=== PATIENT | female | born 1990 | race Caucasian/White ===

== ENCOUNTER 2025-08-20 21:35 | Emergency (ER) | payer BC, SELFPAY ==
--- OUTSIDE RECORDS SUMMARY | 2025-08-20 12:35 | XMS_ITS | Encounter Summary ---
Author Organization [place] Address [address] [place] [id number] Care Team Providers Care Medical Records Technician Name Role Phone Clinic, [facility] Primary Care Provider + Reason for Referral * Consultation (Urgent: 3-5 Days) - Pending Review Specialty Diagnoses / Procedures Referred By Contac t Referred To Contact Urology Diagnoses Nephrolithiasis Yokasta Alexander MD [address] [place] [id number] Phone: tel: fax: Referral ID Status Reason Start Date Expiration Date V isits Requested Visits Authorized [id number] Pending Review 08/20/2025 08/20/2026 1 1 Question Answer Referral Type: Urology Reason for Referral: Kidney Stones/Nephrolithiasis Kidney Stone Type: Acute Patient Scheduling Instructions: [employer] will call you to coordinate care as prescribed your provider. If you don t hear from a senior human resources representative within 2 business days, please call . Additional Information: 5mm stone Comments Please be aware that coverage of these services is subject to the terms and limitations of your health insurance plan. Call member services at your health plan with any benefit or coverage questions. [employer] will call you to coordinate care as prescribed your provider. If you don t hear from a senior human resources representative within 2 business days, please call . Reason for Visit * Reason Comments Abdominal Pain Back Pain Encounter Details Date Type Department Care Team ([facility] Contact Info) Description 08/20/2025 12:35 PM CDT - 08/20/2025 5:20 PM CDT Emergency [facility] Emergency Dept [address] [place] [address] Yokasta Alexander MD [address] [place] [address] Nephrolithiasis (Primary Dx) Discharge Disposition: Home or Self Care Social History Tobacco Use Types Packs/Day Years Used Date Smoking Tobacco: Never Assessed Adolescent Education Answer Date Record ed Getting School Help Needed Not on file 10/30 Comments No Sex and Gender Information Value Date Recorded Sex Assigned at Not on file 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 Gender Identity Not on file Sexual Orientation Not on file Travel History Travel Start Travel End [place] 08/14/2025 08/18/2025 documented as of this encounter Last Filed Vital Signs Vital Sign Reading Time Taken Comments Blood Pressure 128/88 08/20/2025 5:19 PM CDT Pulse 82 08/20/2025 5:19 PM CDT Temperature 36.8 C (98.3 F) 08/20/2025 12:33 PM CDT Respiratory Rate 18 08/20/2025 5:19 PM CDT Oxygen Saturation 99% 08/20/2025 5:19 PM CDT Inhaled Oxygen Concentration - - Weight 57.2 kg (126 lb) 08/20/2025 12:33 PM CDT Height - - Body Mass Index - - documented in this encounter Functional Status * Calculated C-SSRS Risk Score (Lifetime/Recent) Answer Date of Assessment Author No Risk Indicated 08/20/2025 12:32 PM CDT Effie Carvalho RN * [place] Suicide Severity Rating Scale (Screener/Recent Self-Report) Question Answer Date of Assessment Author 1. Wish to be (Past 1 Month) No 12:32 PM CDT Effie Carvalho RN 2. Non-Specific Active Suici annette Thoughts (Past 1 Month) No 08/20/2025 12:32 PM CDT Susy Carvalho RN 6. Suicidal Behavior (Lifetime) No 12:32 PM CDT Effie Carvalho RN documented as of this encounter Discharge Instructions * Discharge Instructions* Yokasta Alexander MD - 08/20/2025 4:50 PM CDT Discharge Instructions Kidney Stones Kidney stones are a common problem that can cause a lot of pain but fortunately are usually not dangerous. Kidney stones form in the kidney and then can cause a blockage (obstruction) of the flow of urine from the kidney which leads to pain. Most patients can manage kidney stones at home (without ahospital stay). However, sometimes your condition may be worse than it seemed at first, or may get worse with time. Most kidney stones will pass on their own, but occasionally stones may need to be removed by an urologist. Generally, every Emergency Department visit should have a follow-up clinic visit with either a primary or a specialty clinic/provider. Please follow-up as instructed by your emergency provider today. Return to the Emergency Department if: Your pain is not controlled despite the medications provided or recommended. You are vomiting (throwing up) and cannot keep fluids or medications down. You develop a fever (>100.4 F). You feel much more ill or develop new symptoms. What can I do to help myself? Be sure to drink plenty of fluids. If instructed to do so, strain your urine (pee) with the urine strainer you were provided with today. Your stone may look like a grain of sand or a small pebble. Collect any stones in the cup provided and bring to your follow-up appointment. Staying active is good, and may help the stone to pass. You may do whatever you feel up to doing without restrictions. Treatment: Non-steroidal anti-inflammatory drugs (NSAIDs). This includes prescription medicines like Toradol??(ketorolac) and non-prescription medicines like Advil?? (ibuprofen) and Nuprin?? (ibuprofen) and Naproxen. These pain relievers are very effective for kidney stones. Nausea (sick to your stomach) medication. Nausea and vomiting are common with kidney stones, so your provider may send you home with medicine for this. Flomax?? (tamsulosin). This medicine is sometimes used for men with prostate problems, but also canhelp kidney stones to pass. Its effectiveness is controversial or questionable so it is prescribed in certain situations. This medicine can lower blood pressure, and you may feel faint/lightheaded, es pecially when you first stand up. Be sure to get up gradually, sit down if you feel faint, and avoid activity where feeling faint would be dangerous, such as climbing ladders. If you were given a prescription for medicine here today, be sure to read all of the information (including the package insert) that comes with your prescription. This will include important information about the medicine, its side effects, and any warnings that you need to know about. The pharmacist who fills the prescription can provide more information and answer questions you may have about the medicine. If you have questions or concerns that the pharmacist cannot address, please call or return to the Emergency Department. Remember that you can always come back to the Emergency Department if you are not able to see your regular provider in the amount of time listed above, if you get any new symptoms, or if there is anything that worries you. * Attachments The following attachments cannot be sent through Care Everywhere. * Kidney Stone (Latvian) * Kidney Stone Prevention Diet: General Info (Latvian) documented in this encounter Medications at Time of Discharge ibuprofen (ADVIL/MOTRIN) 800 MG tablet Take 1 tablet (800 mg) by mouth every 8 hours as needed for moderate pain. 30 tablet 08/20/2025 oxyCODONE (ROXICODONE) 5 MG tablet Take 1 tablet (5 mg) by mouth every 6 hours as needed for pain. 18 tablet 08/20/2025 08/25/2025 tamsulosin (FLOMAX) 0.4 MG capsule Take 1 capsule (0.4 mg) by mouth daily for 10 doses. 10 capsule 08/20/2025 08/30/2025 documented as of this encounter ED Notes * Yokasta Alexander MD - 08/20/2025 12:36 PM CDT Emergency Department Note History of Present Illness Chief Complaint Abdominal Pain and Back Pain HPI Crystal Almanza is a 34 year old female with a history of endometriosis, rheumatoid arthritis, nephrolithiasis, and GERD who presents for evaluation of flank pain and back pain. The patient reports that she recently began experiencing left-sided flank and abdominal pain that radiates to her back, unable to pinpoint the pain. The pain is severe to the point she feels like she might vomit orlose consciousness. She states that this does not feel like previous nephrolithiasis she has had, further mentioning that she thinks she recently passed a stone. She endorses diaphoresis due to the pain, feeling clammy, hot/cold flashes, and not being able to urinate as much as normal, so she is worried about infection. She notes she has had symptoms like this previously, but they did not find any bladder issue or urinary tract infection. She denies any dysuria or fever. She does mention havingCT [facility] her abdomen [facility] today, but she doesnot know what the results are. Independent Historian None Review of External Notes Per chart review of primary care note by Mena VIZCAINO on 08/18/2025, patient presented to clinic for ADHD as well as flank pain, which she thought might be due to a kidney stone. A CT abdomen pelvis stone protocol was ordered and completed today, notable for 5mm stone in left distal ureter with mild left hydronephrosis. Past Medical History Medical History and Problem List Anal fissure Anxiety ADHD Dry eyes Endometriosis GERD Rheumatoid arthritis Lichen sclerosus Asthma Myopia Depression Astigmatism Medications Adderall Enbrel sureclick Breo ellipta Surgical History Destruction of lesion of cul-de-sac Tonsillectomy Adenoidectomy Excision of lesion of ovary section Vulva reconstruction Laparoscopic total hysterectomy Appendectomy Internal anal sphincter botox injection Physical Exam Patient Vitals for the past 24 hrs: BP Temp Temp src Pulse Resp SpO2 Weight 08/20/25 1719 128/88 -- -- 82 18 99 % -- 08/20/25 1233 (!) 122/98 98.3 ??F (36.8 ??C) Temporal 83 18 99 % 57.2 kg (126 lb) Physical Exam Constitutional: Awake, alert, in distress due to pain. HEENT: Normocephalic, atraumatic. Eyes: PERRL, EOMI, no conjunctival injection. No scleral icterus noted. Neck: Symmetric, trachea midline. Pulm: Non-labored respirations on RA, speaking in complete sentences. Lungs CTAB, without rales, rhonchi, or wheezing. CV: RRR. No murmurs or rubs appreciated. Distal pulses intact. No lower extremity edema. ABD: Soft, non-tender, non-distended, without guarding or rebound. Negative Worrell's sign. No tenderness at McBurney's point. Renal: No CVA tenderness. MSK: No deformities. Moving all four limbs spontaneously. Skin: Normal skin color and turgor. No pallor or jaundice noted. No rashes or lesions. Neurologic: A&O x3. Normal speech, following commands. No gross motor or sensory deficits. Psych: Appropriate mood and behavior. Diagnostics Lab Results Labs Ordered and Resulted from Time of ED Arrival to Time of ED Departure COMPREHENSIVE METABOLIC PANEL (LIMITED OCCURRENCES) - Abnormal Result Value Sodium 137 Potassium 4.3 Carbon Dioxide (CO2) 22 Anion Gap 12 Urea Nitrogen 8.3 Creatinine 0.78 GFR Estimate >90 Calcium 9.4 Chloride 103 Glucose 104 (*) Alkaline Phosphatase 72 AST 17 ALT 11 Protein Total 8.1 Albumin 4.6 Bilirubin Total 0.6 ROUTINE UA WITH MICROSCOPIC REFLEX TO CULTURE - Abnormal Color Urine Yellow Appearance Urine Clear Glucose Urine Negative Bilirubin Urine Negative Ketones Urine Negative Specific Cecilia Urine 1.022 Blood Urine Large (*) pH Urine 6.0 Protein Albumin Urine 20 (*) Urobilinogen Urine Normal Nitrite Urine Negative Leukocyte Esterase Urine Negative Bacteria Urine Few (*) Mucus Urine Present (*) RBC Urine 137 (*) WBC Urine 6 (*) Squamous Epithelials Urine 5 (*) CBC WITH PLATELETS AND DIFFERENTIAL - Abnormal WBC Count 4.79 RBC Count 4.77 Hemoglobin 14.3 Hematocrit 41.3 MCV 86.6 MCH 30.0 MCHC 34.6 RDW 12.3 Platelet Count 265 % Neutrophils 75.5 % Lymphocytes 13.8 % Monocytes 8.6 % Eosinophils 1.3 % Basophils 0.6 % Immature Granulocytes 0.2 NRBCs per 100 WBC 0.0 Absolute Neutrophils 3.62 Absolute Lymphocytes 0.66 (*) Absolute Monocytes 0.41 Absolute Eosinophils 0.06 Absolute Basophils 0.03 Absolute Immature Granulocytes <0.03 Absolute NRBCs <0.03 HCG QUALITATIVE URINE - Normal hCG Urine Qualitative Negative URINE CULTURE Imaging No orders to display Independent Interpretation None ED Course Medications Administered Medications sodium chloride 0.9% BOLUS 1,000 mL (0 mLs Intravenous Stopped 08/20/25 1530) ketorolac (TORADOL) injection 15 mg (15 mg Intravenous $Given 08/20/25 1257) oxyCODONE (ROXICODONE) tablet 5 mg (5 mg Oral $Given 08/20/25 1257) sodium chloride 0.9% BOLUS 1,000 mL (0 mLs Intravenous Stopped 08/20/251710) acetaminophen (TYLENOL) tablet 1,000 mg (1,000 mg Oral $Given 08/20/251717) oxyCODONE (ROXICODONE) tablet 5 mg (5 mg Oral $Given 08/20/251717) Procedures Procedures Discussion of Management None ED Course ED Course as of 08/20/252103Aug 20, 2025 1238 I obtained history and examined the patient as noted above 1423 RBC Urine(!): 137 1423 Blood Urine(!): Large 1454 I checked in on the patient. She is feeling much more comfortable and is eating chips. 1618 I rechecked the patient and explained findings. We discussed plans for discharge and the patient is agreeable with this plan. Additional Documentation None Medical Decision Making / Diagnosis [facility] Diagnoses: None MIPS None [facility] Crystal Almanza is a 34 year old female who presents with severe left abdominal, flank, and back pain. Initial differential diagnosis was broad and included infectious, hepatobiliary/pancreatic, vascular, /TRAPEZE ARTIST, obstruction/perforation. On presentation, patient hemodynamically stable with vi vilma signs, non-toxic appearing but in distress due to pain. Exam without any abdominal or CVA tenderness, did not make patient's severe pain worse. Patient received Toradol, oxycodone, and IV fluids in the ED with improvement of symptoms. Workup included CBC without leukocytosis or anemia, patient afebrile, lowering suspicion for serious systemic infection. BMP without gross metabolic derangements, creatinine not elevated, electrolytes within normal limits. LFTs and lipase were within normal limits, and no RUQ tenderness on exam, decreasing the likelihood of hepatic/gallbladder and pancreatic etiology. UA with significant amount of blood, but no leukocyte esterase, minimal WBCs, reassuring against infection. However, given patient is very concerned about infection, and would need emergent procedure for infected stone, urine sent for culture. test negative, unlikely ectopic . Review of CT performed at [facility] and firmed 5 mm stone at the left distal ureter. Patient's pain well- controlled on oral medications, hemodynamically stable, ambulatory and tolerating p.o., so was deemed appropriate for outpatient follow-up. Recommended scheduled Tylenol and Motrin at home, and oxycodone prescribed for breakthrough pain. Patient also prescribed Flomax. Urgent urology referral order given significant likelihood that patient will be unable to pass stone on her own. Discussed the plan with the patient as described, including complications and strict return precautions (including worsening or severe abdominal pain, inability to tolerate fluids, fever, hematemesis, melena/hematochezia, persistent vomiting, inability to pass stool/gas, syncope/presyncope, or any new/worrisome symptoms). The patient expressed understanding and agreement to the plan and was discharged home after all questions were answered. Disposition The patient was discharged. Diagnosis ICD-10-CM 1. Nephrolithiasis N20.0 Adult Urology [employer] Referral Discharge Medications Discharge Medication List as of 08/20/2025 5:12 PM START taking these medications Details ibuprofen (ADVIL/MOTRIN) 800 MG tablet Take 1 tablet (800 mg) by mouth every 8 hours as needed for moderate pain., Disp-30 tablet, R-0, E-Prescribe oxyCODONE (ROXICODONE) 5 MG tablet Take 1 tablet (5 mg) by mouth every 6 hours as needed for pain.,Disp-18 tablet, R-0, E-Prescribe tamsulosin (FLOMAX) 0.4 MG capsule Take 1 capsule (0.4 mg) by mouth daily for 10 doses., Disp-10 capsule, R-0, E-Prescribe Scribe Disclosure: IBenitez, am serving as a scribe at 1:39 PM on 08/20/2025 to document services personally performed by Yokasta Alexander MD based on my observations and the provider's statements to me. Scribe Disclosure: Durga Morrissey, am serving as a scribe aed trainer for Benitez Hernandez at 12:55 PM on 08/20/2025 todocument services personally performed by Yokasta Alexander MD based on my observations and the provider's statements to me. Yokasta Alexander MD 08/20/252104 * Effie Carvalho RN - 08/20/2025 12:32 PM CDT Pt with left sided abdominal pain which radiates into back, states hx of kidney stones but feels more like an infection. C/o sweating and vomiting. Had CT done at [facility] at 10:45am. ABC's intact, alert and oriented X3. Triage Assessment Row Name 08/20/25 1232 Triage Assessment Airway WDL WDL Respiratory WDL Respiratory WDL WDL Skin Circulation/Temperature WDL Skin Circulation/Temperature WDL WDL Cardiac WDL Cardiac WDL WDL Peripheral/Neurovascular WDL Peripheral Neurovascular WDL WDL Cognitive/Neuro/Behavioral WDL Cognitive/Neuro/Behavioral WDL WDL documented in this encounter Plan of Treatment Pending Results Name Type Priority Associated Diagnoses Date /Time Urine Culture Microbiology Add-On 1:15 PM CDT Scheduled Orders Name Type Priority Associated Diagnoses Orde r Schedule Urine Culture Microbiology Add-On Routine f or 1 Occurrences starting 08/20/2025 until 08/20/2025 Scheduled Referrals Name Type Priority Associated Diagnoses Orde r Schedule Adult Urology [employer] Referral Referral Urgent: 3-5 Days Nephrolithiasis Expected: 08/20/2025 (Approximate), Expires: 08/20/2026 documented as of this encounter Procedures Procedure Name Priority Date/Time Associated Diagnosis Comments HCG QUALITATIVE URINE STAT 08/20/2025 1:15 PM CDT ROUTINE UA WITH MICROSCOPIC REFLEX TO CULTURE STAT 08/20/2025 1:15 PM CDT CBC WITH PLATELETS AND DIFFERENTIAL STAT 08/20/2025 12:53 PM CDT CBC WITH PLATELETS AND DIFFERENTIAL (LIMITED OCCURRENCES) STAT 08/20/2025 12:53 PM CDT COMPREHENSIVE METABOLIC PANEL (LIMITED OCCURRENCES) STAT 08/20/2025 12:53 PM CDT documented in this encounter Results * HCG qualitative urine (08/20/2025 1:15 PM CDT) hCG Urine Qualitative Negative Negative LUIS 08/20/2025 1:41 PM CDT LABORATORY Comment:This test is for scr eening purposes. Results should be interpreted along with the clinical picture. Confirmation testing is available if warranted by ordering [id number], HCG Quantitative . Urine URINE SPECIMEN OBTAINED BY CLEAN CATCH PROCEDURE / Unknown Non-blood Collection / Unknown 08/20/2025 1:15 PM CDT 08/20/2025 1:21 PM CDT Yokasta Alexander MD LAB - URINE ORDERABLES Final Res ult LABORATORY [facility] [address] Lab (1st floor, no room number) [place] [address], [facility] * (ABNORMAL) UA with Microscopic reflex to Culture (08/20/2025 1:15 PM CDT) Color Urine Yellow Colorless, Straw, Light Yellow, Yellow 08/20/2025 2:00 PM CDT LABORATORY Appearance Urine Clear Clear 08/20/20 2:00 PM CDT LABORATORY Glucose Urine Negative Negative mg/dL 08/20/2025 2:00 PM CDT LABORATORY Bilirubin Urine Negative Negative 2:00 PM CDT LABORATORY Ketones Urine Negative Negative mg/dL 08/20/2025 2:00 PM CDT LABORATORY Specific Cecilia Urine 1.022 1.003 - 1.035 08/20/2025 2:00 PM CDT LABORATORY Blood Urine Large(A) Negative 08/20/2025 2:00 PM CDT LABORATORY pH Urine 6.0 5.0 - 7.0 08/20/2025 2:00 PM CDT LABORATORY Protein Albumin Urine 20(A) Negative mg/dL 08/20/2025 2:00 PM CDT LABORATORY Urobilinogen Urine Normal Normal mg/dL 08/20/2025 2:00 PM CDT LABORATORY Nitrite Urine Negative Negative 08/20/2025 2:00 PM CDT LABORATORY Leukocyte Esterase Urine Negative Negative 08/20/2025 2:00 PM CDT LABORATORY Bacteria Urine Few(A) None Seen /HPF 08/20/2025 2:00 PM CDT LABORATORY Mucus Urine Present(A) None Seen /LPF 08/20/2025 2:00 PM CDT [facility]ORAT[facility] RBC Urine 137(H) <=2 /HPF 08/20/2025 2:00 PM CDT [facility] LABORAT[facility] WBC Urine 6(H) <=5 /HPF 08/20/2025 2:00 PM CDT [facility] Squamous Epithelials Urine 5(H) <=1 /HPF 08/20/2025 2:00 PM CDT [facility]ORAT[facility] Urine URINE SPECIMEN OBTAINED BY CLEAN CATCH PROCEDURE / Unknown Non-blood Collection / Unknown 08/20/2025 1:15 PM CDT 08/20/2025 1:21 PM CDT Narrative [facility]AT[facility] - 08/20/2025 2:00 PM CDT Urine Culture not indicated us Yokasta Alexander MD LAB - URINE ORDERABLES Final Res ult [facility] LABORATORY [facility] [address] [facility] Lab (1st floor, no room number) [place] [address] * (ABNORMAL) CBC with platelets and differential (08/20/2025 12:53 PM CDT) WBC Count 4.79 4.00 - 11.00 10e3/uL 08/20/2025 1:08 PM CDT [facility] LAB[facility]AT[facility] RBC Count 4.77 3.80 - 5.20 10e6/uL 08/20/2025 1:08 PM CDT [facility] Hemoglobin 14.3 11.7 - 15.7 g/dL 08/20/2025 1:08 PM CDT [facility] Hematocrit 41.3 35.0 - 47.0 % 08/20/2025 1:08 PM CDT [facility] MCV 86.6 78.0 - 100.0 fL 08/20/2025 1:08 PM CDT [facility] MCH 30.0 26.5 - 33.0 pg 08/20/2025 1:08 PM CDT [facility] MCHC 34.6 31.5 - 36.5 g/dL 08/20/2025 1:08 PM CDT [facility] RDW 12.3 10.0 - 15.0 % 08/20/2025 1:08 PM CDT [facility] Platelet Count 265 150 - 450 10e3/uL 08/20/2025 1:08 PM CDT [facility] % Neutrophils 75.5 % 08/20/2025 1:08 PM CDT [facility] % Lymphocytes 13.8 % 08/20/2025 1:08 PM CDT [facility] % Monocytes 8.6 % 08/20/2025 1:08 PM CDT [facility] % Eosinophils 1.3 % 08/20/2025 1:08 PM CDT [facility] % Basophils 0.6 % 08/20/2025 1:08 PM CDT [facility] % Immature Granulocytes 0.2 % 08/20/2025 1:08 PM CDT [facility] LAB[facility] NRBCs per 100 WBC 0.0 <1.0 /100 025 1:08 PM CDT [facility]AT[facility] Absolute Neutrophils 3.62 1.60 - 8.30 10e3/uL 08/20/2025 1:08 PM CDT [facility] Absolute Lymphocytes 0.66(L) 0.80 - 5.30 10e3/uL 08/20/2025 1:08 PM CDT [facility] Absolute Monocytes 0.41 0.00 - 1.30 10e3/uL 08/20/2025 1:08 PM CDT [facility] Absolute Eosinophils 0.06 0.00 - 0.70 10e3/uL 08/20/2025 1:08 PM CDT [facility] Absolute Basophils 0.03 0.00 - 0.20 10e3/uL 08/20/2025 1:08 PM CDT [facility] Absolute Immature Granulocytes <0.03 <=0.40 10e3/uL 08/20/2025 1:08 PM CDT [facility] Absolute NRBCs <0.03 10e3/uL 08/20/2025 1:08 PM CDT [facility] Blood BLOOD SPECIMEN / Unknown Venipuncture / Unknown 08/20/2025 12:53 PM CDT 08/20/2025 1:03 PM CDT us Yokasta Alexander MD LAB - BLOOD ORDERABLES Final Res ult [facility] LABORATORY [facility] [address] Lab (1st floor, no room number) [place] [address], [facility] * (ABNORMAL) Comprehensive Metabolic Panel (Limited Occurrences) (08/20/2025 12:53 PM CDT) Sodium 137 135 - 145 mmol/L 08/20/2025 1:34 PM CDT [facility] Potassium 4.3 3.4 - 5.3 mmol/L 08/20/2025 1:34 PM CDT [facility] Carbon Dioxide (CO2) 22 22 - 29 mmol/L 08/20/2025 1:34 PM CDT [facility] Anion Gap 12 7 - 15 mmol/L 08/20/2025 1:34 PM CDT [facility] Urea Nitrogen 8.3 6.0 - 20.0 mg/dL 08/20/2025 1:34 PM CDT [facility] Creatinine 0.78 0.51 - 0.95 mg/dL 08/20/2025 1:34 PM CDT [facility] GFR Estimate >90 >60 mL/min/1.7 3m2 08/20/2025 1:34 PM CDT [facility] Comment:eGFR calculated usin 2020 CKD-EPI equation. Calcium 9.4 8.8 - 10.4 mg/dL 08/20/2025 1:34 PM CDT [facility] Chloride 103 98 - 107 mmol/L 08/20/2025 1:34 PM CDT [facility] Glucose 104(H) 70 - 99 mg/dL 08/20/2025 1:34 PM CDT [facility] Alkaline Phosphatase 72 40 - 150 U/L 08/20/2025 1:34 PM CDT [facility] AST 17 0 - 45 U/L 08/20/2025 1:34 PM CDT [facility] ALT 11 0 - 50 U/L 08/20/2025 1:34 PM CDT [facility] Protein Total 8.1 6.4 - 8.3 g/dL 08/20/2025 1:34 PM CDT [facility] Albumin 4.6 3.5 - 5.2 g/dL 08/20/2025 1:34 PM CDT [facility] Bilirubin Total 0.6 <=1.2 mg/dL 08/20/2025 1:34 PM CDT [facility] Blood BLOOD SPECIMEN / Unknown Venipuncture / Unknown 08/20/2025 12:53 PM CDT 08/20/2025 1:03 PM CDT us Yokasta Alexander MD LAB - BLOOD ORDERABLES Final Res ult [facility] [address] Lab (1st floor, no room number) [place] [address], [facility] documented in this encounter Visit Diagnoses Diagnosis Nephrolithiasis- Primary Calculus of kidney documented in this encounter Administered Medications Inactive Administered Medications - up to 3 most recent administrations Medication Order MAR Action Action Date Dose Rate Site acetaminophen (TYLENOL) tablet 1,000 mg 1,000 mg, Oral, ONCE, On Mon08/20/25 at 1650, For 1 dose, Maximum acetaminophen dose from all sources = 75 mg/kg/day not to exceed 4 gram $Given 08/20/2025 5:18 PM CDT 1,000 mg ketorolac (TORADOL) injection 15 mg 15 mg, Intravenous, ONCE, On Mon08/20/25 at 1245, For 1 dose, Do not give within 6 hours of Ibuprofen. Can cause pain on injection. If ordered intravenously (IV) : administer through a running maintenance fluid over 1 minute followed by a flush. If patient complains of pain on injection, may dilute 15-30 mg in 5 mL and push over 1 to 2 minutes. $Given 08/20/2025 12:57 PM CDT 15 mg ondansetron (ZOFRAN) injection 4 mg 4 mg, Intravenous, EVERY 30 MIN PRN, nausea/vomiting - 1st line, Administer over 2-5 Minutes, Starting on Mon08/20/25 at 1242, For 3 doses, May repeat in 30 minutes as needed, up to 3 doses. $Given 08/20/2025 12:57 PM CDT 4 mg oxyCODONE (ROXICODONE) tablet 5 mg 5 mg, Oral, ONCE, On Mon08/20/25 at 1245, For 1 dose $Given 08/20/2025 12:57 PM CDT 5 mg oxyCODONE (ROXICODONE) tablet 5 mg 5 mg, Oral, ONCE, On Mon08/20/25 at 1650, For 1 dose $Given 08/20/2025 5:18 PM CDT 5 mg sodium chloride 0.9% BOLUS 1,000 mL Intravenous, 1,000 mL, ONCE, at 1,000 mL/hr, Administer over 1 Hours, On Mon08/20/25 at 1245, For 1 dose $New Bag 08/20/2025 12:55 PM CDT 1,000 mLs 1000 mL/hr sodium chloride 0.9% BOLUS 1,000 mL Intravenous, 1,000 mL, ONCE, at 1,000 mL/hr, Administer over 1 Hours, On Mon08/20/25 at 1545, For 1 dose $New Bag 08/20/2025 4:10 PM CDT 1,000 mLs 1000 mL/hr documented in this encounter Active and Recently Administered Medications Times are shown in CDT. Scheduled Medication Order 08/18/2025 08/19/2025 08/20/2025 acetaminophen (TYLENOL) tablet 1,000 mg (COMPLETED) 1,000 mg, Oral, ONCE, On Mon08/20/25 at 1650, For 1 dose, Maximum acetaminophen dose from all sources = 75 mg/kg/day not to exceed 4 gram 1718 ($Given - Provi bhupendra: Patsy Clements RN) ketorolac (TORADOL) injection 15 mg (COMPLETED) 15 mg, Intravenous, ONCE, On Mon08/20/25 at 1245, For 1 dose, Do not give within 6 hours of Ibuprofen. Can cause pain on injection. If ordered intravenously (IV) : administer through a running maintenance fluid over 1 minute followed by a flush. If patient complains of pain on injection, may dilute 15-30 mg in 5 mL and push over 1 to 2 minutes. 1257 ($Given - Provi bhupendra: Nneka Kennedy RN) oxyCODONE (ROXICODONE) tablet 5 mg (COMPLETED) 5 mg, Oral, ONCE, On Mon08/20/25 at 1245, For 1 dose 1257 ($Given - Provi bhupendra: Nneka Kennedy RN) oxyCODONE (ROXICODONE) tablet 5 mg (COMPLETED) 5 mg, Oral, ONCE, On Mon08/20/25 at 1650, For 1 dose 1718 ($Given - Provi bhupendra: Patsy Clements RN) sodium chloride 0.9% BOLUS 1,000 mL (COMPLETED) Intravenous, 1,000 mL, ONCE, at 1,000 mL/hr, Administer over 1 Hours, On Mon08/20/25 at 1245, For 1 dose 1255 ($New Bag - Pro vider: Nneka Kennedy RN)1530 (Stopped - Provider: Donya Coronado RN) sodium chloride 0.9% BOLUS 1,000 mL (COMPLETED) Intravenous, 1,000 mL, ONCE, at 1,000 mL/hr, Administer over 1 Hours, On Mon08/20/25 at 1545, For 1 dose 1610 ($New Bag - Pro vider: Patsy Clements RN)1711 (Stopped - Provider: Patsy Clements RN) PRN Medication Order 08/18/2025 08/19/2025 08/20/2025 ondansetron (ZOFRAN) injection 4 mg 4 mg, Intravenous, EVERY 30 MIN PRN, nausea/vomiting - 1st line, Administer over 2-5 Minutes, Starting on Mon08/20/25 at 1242, For 3 doses, May repeat in 30 minutes as needed, up to 3 doses. 1257 ($Given - Provi bhupendra: Nneka Kennedy RN) documented in this encounter Care Teams Medical Records Technician Relationship Specialty Start Date End Date [facility] [address] [place] [address] PCP - General 08/20/25 documented as of this encounter
[2025-08-20 21:39] VITALS: BP 114/71; PULSE 86; RESP 20; TEMP 36.4; O2SAT 100; BMI 22.0
[2025-08-20 22:20] VITALS: O2SAT 96
--- NOTE | 2025-08-20 22:23 | ED_ITS ---
HPI - General Adult General Date Seen: 08/20/25 Chief complaint: Abdominal Pain Stated complaint: multiple kidney stones Time Seen by Provider: 08/20/25 22:06 History of Present Illness HPI narrative: Patient is a 34-year-old generally healthy woman, she has had kidney stones over the past year, presents to our ER after being at [facility] earlier today, diagnosed with a 5 mm left ureteral stone, and says she has failed outpatient management. She was prescribed oxycodone, she has been taking ibuprofen and Tylenol, she says she is needing oxycodone every 2 hours but it is not helping with her pain and now she has started vomiting. She says she can not keep anything down at this point. She has not had fevers although she has felt hot. She says she was told that this stone would likely need to be removed and urology follow-up was to happen sometime later this week or early next week, but she says she there is no way she can wait that long. Denies other medical history, no allergies. Related Data Home Medications ?Medication ?Instructions ?Recorded ?Confirmed dextroamphetamine-amphetamine .ROUTE 08/20/25 Allergies Allergy/AdvReac Type Severity Reaction Status Date / Time chlorine Allergy Unknown Uncoded 08/20/25 21:45 Review of Systems Status of ROS: Reports: 10 or more systems reviewed and unremarkable except as noted in History and below Exam Narrative: Exam Narrative: Vital signs reviewed In general, alert, nontoxic woman. Looks mildly uncomfortable. Head: Normocephalic, atraumatic. Eyes: Sclera clear. Pupils equal and reactive. ENT: Mucous membranes moist. Neck: Supple without adenopathy. Heart: Regular rate and rhythm without murmur. Lungs: Clear. No increased work of breathing, crackles or wheezes. Abdomen: Soft, nontender to palpation. Mild CVA tenderness on the left, none on the right. Extremities: Well perfused, pulses intact. No significant edema. Neurologic: Alert, conversant. Speech fluent, face symmetric. Moves all extremities equally. Skin: Warm, dry well perfused. Affect: Normal. Const: Vital Signs, click to edit/add: Vital Signs - 24 hr 08/20/25 21:39 Temperature 97.5 F L Pulse Rate [Pulse Oximeter] 86 Respiratory Rate 20 Blood Pressure [Ri ght Upper Arm] 114/71 Pulse Oximetry 100 Oxygen Delivery Me thod Room Air Course Course ED Course: Will establish an IV, give Toradol 15 mg morphine 4 mg and Zofran 4 mg as well as a L of normal saline. I reviewed her records from [facility] earlier today, will recheck some labs but there was no sign earlier today of significant infection or metabolic derangement. Urinalysis was notable for greater than 100 red cells, 6 white cells, moderate squamous cells. test was negative. White blood cell count was 4.8. Patient said she came here versus going back to [facility] because they were ?boneheads; she did not feel that her symptoms were treated adequately there. I will call and talk with [facility] and see if they are able to take her as a transfer given failed outpatient management. Discussed with hospitalist at [facility] and accepted in transfer. No reported wait for beds at this time, will transfer by ground when bed assigned. Vital Signs Vital signs: Initial Vital Signs Temperature 97.5 F L 08/20/25 21:39 Temperature Source Oral 08/20/25 21:39 Pulse Rate 86 08/20/25 21:39 Respiratory Rate 20 08/20/25 21:39 Blood Pressure 114/71 08/20/25 21:39 Blood Pressure Mean 85 08/20/25 21:39 Blood Pressure Position Sitting 08/20/25 21:39 Pulse Oximetry 100 08/20/25 21:39 Oxygen Delivery Method Room Air 08/20/25 21:39 Vital Signs Temperature 97.5 F L 08/20/25 21:39 Pulse Rate 86 08/20/25 21:39 Respiratory Rate 20 08/20/25 21:39 Blood Pressure 114/71 08/20/25 21:39 Pulse Oximetry 100 08/20/25 21:39 Oxygen Delivery Method Room Air 08/20/25 21:39 Temperature 97.5 F L 08/20/25 21:39 Pulse Rate 73 08/20/25 23:09 Respiratory Rate 20 08/20/25 21:39 Blood Pressure 124/81 08/20/25 23:09 Pulse Oximetry 99 08/20/25 23:09 Oxygen Delivery Method Room Air 08/20/25 21:39 Medications Administered Medications: Discontinued Medications Generic Name Dose Route Start Last Admin Trade Name Freq PRN Reason Stop Dose Admin Sodium Chloride 1,000 mls @ 1,000 mls/hr 08/20/25 22:15 08/20/25 23:27 0.9 % Sodium Chloride 1000 Ml IV 08/20/25 23:14 1,000 mls/hr .Q1H FORD Infusion Ketorolac Tromethamine 15 mg 08/20/25 22:13 08/20/25 22:37 Ketorolac 15 Mg/Ml Inj IVP 08/20/25 22:14 15 mg ONCE ONE Administration Morphine Sulfate 4 mg 08/20/25 22:13 08/20/25 22:39 Morphine 4 Mg/Ml Inj IVP 08/20/25 22:14 4 mg ONCE ONE Administration Ondansetron HCl 4 mg 08/20/25 22:13 08/20/25 22:34 Ondansetron 2 Mg/Ml Inj IVP 08/20/25 22:14 4 mg ONCE ONE Administration Medical Decision Making Lab Data Labs: Lab Results 08/20/25 Range/Units 22:27 WBC 4.69 (4.50-11.00) K/uL RBC 4.01 (4.00-5.20) m/uL Hgb 11.9 L (12.0-16.0) gm/dL Hct 36.1 (33.0-51.0) % MCV 90 (80-100) fL MCH 30 (26-34) pg MCHC 33 (32-36) gm/dL RDW Coeff of Grace 12.2 (11.5-15.5) % Plt Count 233 (140-440) K/uL Neut % (Auto) 80.0 H (42.0-72.0) % Lymph % (Auto) 9.8 L (20-44) % [place] % (Auto) 7.9 (0.0-11.0) % Eos % (Auto) 1.3 (0.0-7.0) % Baso % (Auto) 0.4 (0.0-3.0) % Neut # (Auto) 3.80 (1.7-7.0) K/uL Lymph # (Auto) 0.50 L (0.90-2.90) K/uL [place] # (Auto) 0.40 (0.00-0.90) K/UL Eos # (Auto) 0.06 (0.00-0.50) K/uL Baso # (Auto) 0.02 (0.00-0.30) K/uL Abs Immat Gran (auto) 0.03 (0.00-0.30) K/uL Imm/Tot Granulo (auto) 0.6 % Sodium 139 (135-149) mmol/L Potassium 3.6 (3.6-5.1) mmol/L Chloride 109 (96-114) mmol/L Carbon Dioxide 25 (20-32) mmol/L Anion Gap 5 L (7-15) mEq/L BUN 8 (5-24) mg/dL Creatinine 0.8 (0.5-1.5) mg/dL Estimated Creat Clear 89.16 Estimated GFR 99 ml/min Glucose 126 H (60-115) mg/dL Calcium 8.3 L (8.4-10.6) mg/dL C-Reactive Protein < 0.5 L (0.5-1.0) mg/dL Discharge Plan Discharge Patient Disposition: Xfer [facility] Prescriptions: No Action dextroamphetamine-amphetamine [Adderall] .ROUTE Stand Alone Forms: MyHealth Info Instructions
--- OUTSIDE RECORDS SUMMARY | 2025-08-20 22:33 | XMS_ITS | Encounter Summary ---
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 Wish to be (Past 1 Month) No 12:32 PM Effie Aiken RN 2. Non-Specific Active Suici annette Thoughts (Past 1 Month) No 08/20/2025 12:32 PM CDSusy Kaye RN 6. Suicidal Behavior (Lifetime) No 12:32 PM Effie Aiken RN documented as of this encounter Plan of Treatment Not on file documented as of this encounter Visit Diagnoses Not on filedocumented in this encounter Care Teams Reporting Coordinator Relationship Specialty Start Date End Date [facility] [address] [place] [id number] PCP - General 08/20/25 documented as of this encounter
--- OUTSIDE RECORDS SUMMARY | 2025-08-20 22:33 | XMS_ITS | Clinical Summary ---
Author Organization [facility] Address [address] [place] [address] Care Team Providers Care Systems Consultant Name Role Phone Shanthi Hidalgo DO Unavailable [phone] Mariana San Primary Care Provider [phone] Allergies Active Allergy Reactions Criticality Noted Date Comments Latex Hives Medium 11/21/2012 Sodium Hypochlorite Solution *Unknown Low 011 Medications Amphetamine-Dextr oamphetamine (ADDERALL) 15 mg tablet TAKE 1 TABLET BY MOUTH TWICE DAILY AT NOON AND AT 3 PM 3 Active dextroamphetamine -amphetamine (ADDERALL XR) 20 mg Extended-Release capsule Take 20 mg by mouth once daily. 3 Active Ventolin HFA 90 mcg/actuation inhalerIndication s:Moderate persistent asthma without complication (HC) Inhale 1 Puff by mouth every 6 hours if needed for Wheezing. 18 g 3 3 Active fluticasone furoate-vilantero L (BREO ELLIPTA) 200-25 mcg/dose inhalation powdererIndicatio ns:Moderate persistent asthma without complication (HC) INHALE 1 PUFF BY MOUTH ONCE DAILY 60 Each 2 5 Active etanercept (EnbreL SureClick) 50 mg/mL (1 mL) pen injectorIndicatio ns:Seropositive rheumatoid arthritis (HC) INJECT 50 MG (1 ML) UNDER THE SKIN ONCE WEEKLY 4 mL 6 5 08/18/20 25 Discontinu ed(*Patien t states no longer taking) Active Problems Problem Noted Date Diagnosed Date Encounter for long-term (current) use of insulin 01/18/2024 Recurrent major depression in full remission Anxiety 06/26/2023 Moderate persistent asthma without complication 06/26/2023 Seropositive rheumatoid arthritis 04/04/2023 Lichen sclerosus 08/31/2022 History of rheumatoid arthritis 02/03/2022 Dry eyes, bilateral 02/03/2022 Regular astigmatism, bilateral 02/03/2022 Myopia, bilateral 02/03/2022 Anal fissure 01/24/2020 Endometriosis 06/13/2019 Encounters Date Type Department Care Team Description 08/20/2025 11:59 PM CDT Hospital Encounter [facility] [address] [place] [address] [facility], [facility] Hospitalists Of 08/20/2025 11:10 AM CDT Ancillary Procedure [facility] [address] [place] [address] Arrived 08/20/2025 Telephone [facility] [place] [place] [address] [place] [address] Yisel Mccray PA Abnormal Lab Results 08/20/2025 Travel 08/18/2025 2:30 PM CDT Office Visit [facility] [place] [address] [place] [address] Mariana San PA Establish Care; Medication Management (Refill adderall ); Urinary Problem (possible kidney stones, flank pain, blood in urine, left side pain and back) 08/18/2025 Travel from Last 3 Months Immunizations Immunization Administration Dates Next Due DTP 07/20/1992,10/22/1991,04/04/1991 ,01/17/1991 DTaP 07/18/1996 Hib Conjugate, Unspecified 07/20/1992,10/04/1991 ,04/04/1991,01/17/1991 Influenza Virus, Unspecified 09/23/2013,07/27/20 10 Influenza, IIV3 (Age 6-35 mos) 07/27/2010 MMR 07/20/1992 Polio Virus, Unspecified 07/18/1996,07/20/1992,0 04/04/1991,01/17/1991 Td (Age >=7 Years) 04/01/2015,02/25/2003 Tdap 01/10/2020 Social History Tobacco Use Types Packs/Day Years Used Date Smoking Tobacco: Never Smokeless Tobacco: Never Alcohol Use Standard Drinks/Week Comments Yes 0 (1 standard drink = 0.6 oz pur e alcohol) 1-2 times a month PHQ-2 Answer Date Recorded PHQ-2 TOTAL SCORE 0 08/18/2025 Social Connections Answer Date Recorded Do you often feel lonely or isolated from those around you? 0 10/22/2024 Alcohol Use Answer Date Recorded How often do you have a drink containing alcohol ? 1 08/18/2025 How many drinks containing a lcohol do you have on a typical day when you are drinking? 0 08/18/2025 How often do you have five or more drinks on one occasion? 0 08/18/2025 Financial Resource Strain Answer Date R ecorded Difficulty of Paying Living Expenses 3 10/22/2024 Difficulty of Paying Living Expenses Not on file 10/22/2024 Food Insecurity Answer Date Recorded Do you worry your food will run out before you are able to buy more? 1 10/22/2024 Transportation Needs Answer Date Record ed Does lack of transportation keep you from medica l appointments? 1 10/22/2024 Does lack of transportation keep you from work, meetings or getting things that you need? 1 10/22/2024 Housing Stability Answer Date Recorded What is your housing situation today? 1 10/22/2024 Utilities Answer Date Recorded Do you have trouble paying f or utilities (for example, heat, electricity, water, phone)? 1 10/22/2024 Comments No Sex and Gender Information Value Date Recorded Sex Assigned at Not on file Legal Sex Female 9:26 AM CDT Gender Identity Not on file Sexual Orientation Not on file Obstetrics History Para Term AB IAB SAB Ectopic Multiple Livin g Live Births 1 1 1 1 Date Outcome GA Total Labor Labor/2nd/3rd Weight Sex Type Anes PTL Roxi A1 A5 Name Clin Term Last Filed Vital Signs Vital Sign Reading Time Taken Comments Blood Pressure 125/73 08/18/2025 2:41 PM CDT Pulse 103 08/18/2025 2:41 PM CDT Temperature 36.9 C (98.5 F) 10/22/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 Respiratory Rate 16 01/18/2024 8:05 AM CDT Oxygen Saturation 100% 01/18/2024 8:05 AM CDT Inhaled Oxygen Concentration - - Weight 59.2 kg (130 lb 7 oz) 08/18/2025 2:41 PM CDT shoes on Height 162 cm (5' 3.78) 10/22/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 Body Mass Index 22.54 10/22/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 Plan of Treatment Upcoming Encounters Date Type Department Care Team (Late st Contact Info) Description 08/21/2025 3:15 PM CDT Orders Only [facility] [address] [place] [address] Health Maintenance Due Date Last Done Comments HIV for age 15-65 2005 Hepatitis C screening for ag e 18-79 2008 Hepatitis B series for 19+ ( 1 of 3 - 19+ 3-dose series) 2009 Pneumococcal series for age 6-49 (1 of 2 - PCV) 2009 HPV series for age 9-45 (1 - 3-dose SCDM series) 2017 Influenza Vaccine (#1) 2025 3, 07/27/2010, 07/27/2010 BMI (ht and wt on same day) for age 18+ 10/22/2025 10/22/2024, 01/18/2024, 08/08/2023, Additional history exists Depression screening for age 12+ 08/18/2026 08/18/20, 02/21/2023 Tetanus booster 01/09/2030 01/10/2020, 03/23, 02/25/2003 RSV vaccine for adults or (1 - 1-dose 75+ series) 2065 Pap test for age 21-65 Discontinued Procedures Procedure Name Priority Date/Time Associated Diagnosis Comments CT ABDOMEN PELVIS STONE PROTOCOL WO ADAM 08/20/2025 10:57 AM CDT Flank pain, unspecified laterality from Last 3 Months Results * CT ABDOMEN PELVIS STONE PROTOCOL WO (08/20/2025 10:57 AM CDT) Anatomical Region Laterality Modality Abdomen, Pelvis, AORTA, LIVER, SPLEEN Computed Tomography 08/20/2025 1:12 PM CDT Impressions 08/20/2025 1:12 PM CDT 1. Obstructing 5 millimeter calculus in the left distal ureter with mild left hydroureteronephrosis and mild distal periureteral fat stranding. 2. Nonobstructing left renal stones and calcification of the bilateral renal papillae without jurgen calculi. Please note that all CT scans at this facility use dose modulation, iterative reconstruction, and/or weight-based dosing when appropriate to reduce radiation dose to as low as reasonably achievable. Dictated by Davian Mitchell MD @ 08/20/2025 1:12:01 PM (Electronically Signed) Narrative 08/20/2025 1:12 PM CDT For Patients: As a result of the Cures Act, medical imaging exams and procedure reports are released immediately into your electronic medical record. You may view this report before your referring provider. If you have questions, please contact your health care provider. INDICATION: Flank pain with suspected kidney stone. COMPARISON: None. TECHNIQUE: CT of the abdomen and pelvis without intravenous contrast. FINDINGS: Please note that absence of intravenous contrast limits evaluation of soft tissue and vascular structures. Lung bases: No pleural effusion. There is a punctate calcified granuloma in the right lower lobe. Liver: Smooth hepatic contour. Gallbladder and biliary tree: Unremarkable noncontrast CT appearance. Spleen: No splenomegaly. Pancreas: Unremarkable noncontrast CT appearance. Adrenal glands: Normal. Kidneys and ureters: Mild left hydroureteronephrosis. 5 millimeter calculus in the left distal ureter. There is mild left distal periureteric fat stranding. Diffuse slightly increased attenuation of the bilateral renal papillae compatible with renal papillary calcification without discrete calculi. There are also a few discrete nonobstructing 2 millimeter calculi in the left kidney. No right-sided hydroureteronephrosis. Bladder: Unremarkable noncontrast CT appearance. Gastrointestinal tract: No focal abnormally dilated loops of bowel. Peritoneal cavity: No free fluid or free air. Lymph nodes: No enlarged abdominal or pelvic lymph nodes by CT size criteria. Vessels: No abdominal aortic aneurysm. Abdominal and pelvic wall: Status post bilateral breast implants which are partially imaged. There is scarring in the bilateral abdominal wall subcutaneous fat. Bones: There are osseous degenerative changes. There is slight multilevel vertebral body wedging most conspicuous at the thoracolumbar junction. Procedure Note Davian Mitchell MD - 08/20/2025 For Patients: As a result of the Century Cures Act, medical imagingexams and procedure reports are released immediately into your electronicmedical record. You may view this report before your referring provider.If you have questions, please contact your health care provider. INDICATION: Flank pain with suspected kidney stone. COMPARISON: None. TECHNIQUE: CT of the abdomen and pelvis without intravenous contrast. FINDINGS: Please note that absence of intravenous contrast limits evaluation of softtissue and vascular structures. Lung bases: No pleural effusion. There is a punctate calcified granulomain the right lower lobe. Liver: Smooth hepatic contour. Gallbladder and biliary tree: Unremarkable noncontrast CT appearance. Spleen: No splenomegaly. Pancreas: Unremarkable noncontrast CT appearance. Adrenal glands: Normal. Kidneys and ureters: Mild left hydroureteronephrosis. 5 millimetercalculus in the left distal ureter. There is mild left distal periuretericfat stranding. Diffuse slightly increased attenuation of the bilateralrenal papillae compatible with renal papillary calcification withoutdiscrete calculi. There are also a few discrete nonobstructing 2millimeter calculi in the left kidney. No right-sidedhydroureteronephrosis. Bladder: Unremarkable noncontrast CT appearance. Gastrointestinal tract: No focal abnormally dilated loops of bowel. Peritoneal cavity: No free fluid or free air. Lymph nodes: No enlarged abdominal or pelvic lymph nodes by CT sizecriteria. Vessels: No abdominal aortic aneurysm. Abdominal and pelvic wall: Status post bilateral breast implants which arepartially imaged. There is scarring in the bilateral abdominal wallsubcutaneous fat. Bones: There are osseous degenerative changes. There is slight multilevelvertebral body wedging most conspicuous at the thoracolumbar junction. IMPRESSION: 1. Obstructing 5 millimeter calculus in the left distal ureter with mildleft hydroureteronephrosis and mild distal periureteral fat stranding. 2. Nonobstructing left renal stones and calcification of the bilateralrenal papillae without jurgen calculi. Please note that all CT scans at this facility use dose modulation,iterative reconstruction, and/or weight-based dosing when appropriate toreduce radiation dose to as low as reasonably achievable. Dictated by Davian Mitchell MD @ 08/20/2025 1:12:01 PM (Electronically Signed) Mariana VIZCAINO CT Final Res ult from Last 3 Months Insurance [facility] Care Teams Systems Consultant Relationship Specialty [place] [address] [place] [address] PCP - General Physician Regional Administrative Assistant 08/18/25 Shanthi Hidalgo DO [id number] [place] [address] Rheumatology 06/13/23
--- OUTSIDE RECORDS SUMMARY | 2025-08-20 22:33 | XMS_ITS | Clinical Summary ---
Author Organization [facility] Address [address] [place] [id number] Care Team Providers Care Chief Controller Station Name Role Phone [facility], [facility] Primary Care Provider + Allergies Active Allergy Reactions Criticality Noted Date Comments Latex Hives Medium 11/21/2012 Sodium Hypochlorite Unknown,Other (See Comments) Low 01/30/2011 Medications oxyCODONE (ROXICODONE) 5 MG tablet Take 1 tablet (5 mg) by mouth every 6 hours as needed for pain. 18 tablet 08/20/2025 08/25/20 25 Active ibuprofen (ADVIL/MOTRIN) 800 MG tablet Take 1 tablet (800 mg) by mouth every 8 hours as needed for moderate pain. 30 tablet 08/20/2025 Active tamsulosin (FLOMAX) 0.4 MG capsule Take 1 capsule (0.4 mg) by mouth daily for 10 doses. 10 capsule 08/20/2025 08/30/20 25 Active Encounters Date Type Department Care Team Description 08/20/2025 12:35 PM CDT - 08/20/2025 5:20 PM CDT Emergency [facility] Emergency Dept [address] [place] [address] Yokasta Alexander MD Nephrolithiasis (Primary Dx) Discharge Disposition: Home or Self Care 08/20/2025 Travel from Last 3 Months Social History Tobacco Use Types Packs/Day Years Used Date Smoking Tobacco: Never Assessed Adolescent Education Answer Date Record ed Getting School Help Needed Not on file 10/30 Comments No Sex and Gender Information Value Date Recorded Sex Assigned at Not on file 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 Gender Identity Not on file Sexual Orientation Not on file Travel History Travel Start Travel End [place] 08/14/2025 08/18/2025 Last Filed Vital Signs Vital Sign Reading [...] - - Body Mass Index - - Plan of Treatment Health Maintenance Due Date Last Done Comments ADVANCE CARE PLANNING 1990 ANNUAL REVIEW OF HM ORDERS 1990 HEPATITIS C SCREENING 2008 HEPATITIS B VACCINE (1 of 3 - 19+ 3-dose series) 2009 PAP 2011 YEARLY PREVENTIVE VISIT 03/07/2020 03/07/2019, 01/02 PHQ-2 (once per calendar year) 2024 COVID-19 VACCINE ( season) 2025 INFLUENZA VACCINE (#1) 2025 3, 07/27/2010, 07/27/2010 DTAP/TDAP/TD VACCINE (7 - Td or Tdap) 01/09/2030 01/10/2020, 04/01/2015, 02/25/2003, Additional history exists ZOSTER VACCINE (1 of 2) 2040 HIV SCREENING Completed 06/23/2021 HPV VACCINE (No Doses Required) Completed MENINGITIS VACCINE Aged Out No longer eligible based on patient's age to complete this topic PNEUMOCOCCAL VACCINE: PEDIATRICS (0 to 5 YEARS) AND AT-RISK PATIENTS (6 to 49 YEARS) Aged Out No longer eligible based on patient's age to complete this topic Procedures Procedure Name Priority Date/Time Associated Diagnosis Comments HCG QUALITATIVE URINE STAT 08/20/2025 1:15 PM CDT ROUTINE UA WITH MICROSCOPIC REFLEX TO CULTURE STAT 08/20/2025 1:15 PM CDT CBC WITH PLATELETS AND DIFFERENTIAL (LIMITED OCCURRENCES) STAT 08/20/2025 12:53 PM CDT CBC WITH PLATELETS AND DIFFERENTIAL STAT 08/20/2025 12:53 PM CDT COMPREHENSIVE METABOLIC PANEL (LIMITED OCCURRENCES) STAT 08/20/2025 12:53 PM CDT from Last 3 Months Results * HCG qualitative urine (08/20/2025 1:15 PM CDT) hCG Urine Qualitative Negative Negative LUIS 08/20/2025 1:41 PM CDT LABORATORY Comment:This test is for scr eening purposes. Results should be interpreted along with the clinical picture. Confirmation testing is available if warranted by ordering [id number], HCG Quantitative . Urine URINE SPECIMEN OBTAINED BY CLEAN CATCH PROCEDURE / Unknown Non-blood Collection / Unknown 08/20/2025 1:15 PM CDT 08/20/2025 1:21 PM CDT Yokasta Alexander MD LAB - URINE ORDERABLES Final Res ult [facility] [address] [facility] Lab (1st floor, no room number) [place] [address], [facility] * (ABNORMAL) UA with Microscopic reflex to Culture (08/20/2025 1:15 PM CDT) Color Urine Yellow Colorless, Straw, Light Yellow, Yellow 08/20/2025 2:00 PM CDT LABORATORY Appearance Urine Clear Clear 08/20/20 2:00 PM CDT LABORATORY Glucose Urine Negative Negative mg/dL 08/20/2025 2:00 PM CDT LABORATORY Bilirubin Urine Negative Negative 2:00 PM CDT LABORATORY Ketones Urine Negative Negative mg/dL 08/20/2025 2:00 PM CDT LABORATORY Specific [place] Urine 1.022 1.003 - 1.035 08/20/2025 2:00 PM CDT LABORATORY Blood Urine Large(A) Negative 08/20/2025 2:00 PM CDT [facility] LAB[facility]AT[facility] pH Urine 6.0 5.0 - 7.0 08/20/2025 2:00 PM CDT [facility] Protein Albumin Urine 20(A) Negative mg/dL 08/20/2025 2:00 PM CDT [facility] Urobilinogen Urine Normal Normal mg/dL 08/20/2025 2:00 PM CDT [facility] Nitrite Urine Negative Negative 08/20/2025 2:00 PM CDT [facility] Leukocyte Esterase Urine Negative Negative 08/20/2025 2:00 PM CDT [facility] Bacteria Urine Few(A) None Seen /HPF 08/20/2025 2:00 PM CDT [facility] Mucus Urine Present(A) None Seen /LPF 08/20/2025 2:00 PM CDT [facility] RBC Urine 137(H) <=2 /HPF 08/20/2025 2:00 PM CDT [facility] WBC Urine 6(H) <=5 /HPF 08/20/2025 2:00 PM CDT [facility] Squamous Epithelials Urine 5(H) <=1 /HPF 08/20/2025 2:00 PM CDT LABORATORY Urine URINE SPECIMEN OBTAINED BY CLEAN CATCH PROCEDURE / Unknown Non-blood Collection / Unknown 08/20/2025 1:15 PM CDT 08/20/2025 1:21 PM CDT Narrative LABORATORY - 08/20/2025 2:00 PM CDT Urine Culture not indicated us Yokasta Alexander MD LAB - URINE ORDERABLES Final Res ult LABORATORY [facility] Lab [address] Lab (1st floor, no room number) [place] [address], [facility] * (ABNORMAL) CBC with platelets and differential [...] 12:53 PM CDT 08/20/2025 1:03 PM CDT Yokasta Alexander MD LAB - BLOOD ORDERABLES Final Res ult [facility] LABORATORY [facility] [address] Lab (1st floor, no room number) [place] [address], [facility] * (ABNORMAL) Comprehensive Metabolic Panel (Limited Occurrences) (08/20/2025 12:53 PM CDT) Sodium 137 135 - 145 mmol/L 08/20/2025 1:34 PM CDT LABORATORY Potassium 4.3 3.4 - 5.3 mmol/L 08/20/2025 1:34 PM CDT LABORATORY Carbon Dioxide (CO2) 22 22 - [...] BLOOD ORDERABLES Final Res ult [facility] LABORATORY [facility] [address] [facility] (1[facility], no room number) [place] [address], [facility] from Last 3 Months Insurance [employer] Care Teams Chief Controller Station Relationship Specialty Start Date End Date [facility] [id number] [place] [id number] PCP - General 08/20/25
[2025-08-20] MEDS: ONDANSETRON 2 MG/ML inj 4 MG IVP (22:34)
--- OUTSIDE RECORDS SUMMARY | 2025-08-20 22:34 | XMS_ITS | Patient Health Record ---
Author Organization [facility], [facility] Address [address] [place] [address] Support Name Relationship Address Phone Rhonda Gardner Emergency Contact [address] [place] [address] Crystal Almanza Guarantor Unknown Reason For Referral No Information Plan Of Treatment No Information Insurance Providers Payer Name Payer Address Payer Phone Subscriber Number Group Number Insured Name Patient Relationship to Insured Coverage Start Date Coverage End Date [employer] [address] [place] [address] Crystal Almanza Self - patient is the insured
[2025-08-20] MEDS: MORPHINE 4 MG/ML INJ IVP (22:39)
[2025-08-20 22:41] LABS: Hematocrit* 36.1 % (33.0-51.0); Hemoglobin* 11.9 gm/dL (12.0-16.0); Immature Granulocytes Abs Auto 0.03 K/uL (0.00-0.30); Immature Granulocytes Pct Auto 0.6 %; Mean Corpuscular HGB Conc 33 gm/dL (32-36); Mean Corpuscular Hemoglobin 30 pg (26-34); Mean Corpuscular Volume 90 fL (80-100); RDW Coefficient of Variation % 12.2 % (11.5-15.5); Red Blood Count* 4.01 m/uL (4.00-5.20); White Blood Count* 4.69 K/uL (4.50-11.00)
[2025-08-20 22:44] LABS: Chloride* 109 mmol/L (96-114)
[2025-08-20 22:45] LABS: Lymphocytes Absolute Auto 0.50 K/uL (0.90-2.90); Potassium* 3.6 mmol/L (3.6-5.1); Slide Review Reflex No; Sodium* 139 mmol/L (135-149)
[2025-08-20 22:47] LABS: Blood Urea Nitrogen* 8 mg/dL (5-24); Creatinine* 0.8 mg/dL (0.5-1.5); Est. Creatinine Clearance* 89.16; Estimated Glomerular Filt Rate 99 ml/min
[2025-08-20 22:48] LABS: Anion Gap 5 mEq/L (7-15); Calcium* 8.3 mg/dL (8.4-10.6); Carbon Dioxide* 25 mmol/L (20-32); Glucose* 126 mg/dL (60-115)
[2025-08-20 23:08] VITALS: PULSE 81; O2SAT 100
[2025-08-20 23:09] VITALS: BP 124/81; PULSE 73; O2SAT 99
== END 2025-08-20 23:30 | disposition short-term general hospital (02) ==
LOC: ED 22:31
PROVIDERS: Emergency Provider Emergency Medicine
DX: N20.0 Calculus of kidney (principal); Z32.02 Encounter for pregnancy test, result negative
CPT/HCPCS: 36415; 80048; 85025; 86140; 94761; 96361; 96374; 96375; 99284; 99285; J1885; J2270; J2405; J7030

== ENCOUNTER 2025-08-20 23:22 | Outpatient (CLI) | payer BC, SELFPAY | END 2025-08-20 23:23 | disposition home or self-care (01) | PROVIDERS: Visit Provider Emergency Medicine | DX: N20.0 Calculus of kidney (principal) | CPT/HCPCS: A0425; A0427 ==